=== PATIENT | male | born 2000 | race Caucasian/White ===

== ENCOUNTER 2022-01-01 23:56 | Emergency (ER) | payer MEDICAID ==
[~2022-01-01] VITALS: Ht 177.8 cm; Wt 100.0 kg
[2022-01-02 00:44] VITALS: BP 134/70
[2022-01-02] MEDS: KETOROLAC 60MG/2ML VIAL IM ONE (00:44)
[2022-01-02] MEDS ORDERED: IBUP-2028 MT (02:26)
== END 2022-01-02 06:34 | disposition home or self-care (01) ==
LOC: ER 23:56
DX: R07.89 Other chest pain (principal)
CPT/HCPCS: 71046; 96372; 99283; J1885